=== PATIENT | female | born 1945 | race Caucasian/White ===

== ENCOUNTER → 2016-12-12 | Outpatient (CLI) | payer MEDICARE, BC ==
--- NOTE | 2016-12-14 14:11 | CR ---
EXAM DATE: 12/12/16 PATIENT'S AGE: 71 Patient: CHERELLE UMAÑA Facility: [place], [place] Site . Site : 1945 Study: XRay Knee Right [id number] 3:03:33 PM Ordering Physician: Bhargav Thompson Final Report: HISTORY: Pain. Findings: Standing AP and PA views of both knees were obtained with lateral and sunrise views of the right knee. There is marked decrease of the lateral joint space of the left knee with articular sclerosis and spurring of the lateral tibial plateau. There is mild decrease in medial joint space of the right knee with spurring of the medial femoral condyle. There is marked decrease the lateral joint space of the right knee with spurring off the lateral tibial plateau. There is mild spurring of the posterior patella. Moderate suprapatellar joint effusion is present. No fracture or dislocation is seen. Impression: 1. 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 2. Degenerative change in the medial and lateral joint spaces of the left knee with decrease in the lateral joint space. 3. Small amount of suprapatellar joint fluid within the right knee. Dictated by Karolina Vo MD @ Dec 13 2016 10:54PM (Electronic Signature) Report Signed by Proxy. ARGENIS
== END ==
LOC: MW.CHORTHO 14:49
PROVIDERS: ATTEND Orthopaedic Surgery
DX: M25.561 Pain in right knee (principal); M25.862 Other specified joint disorders, left knee; M25.861 Other specified joint disorders, right knee; M25.461 Effusion, right knee
CPT/HCPCS: 20610-50; 73564-26-RT; 73564-RT; 99214; J1040